=== PATIENT | female | born 1990 | race Caucasian/White ===

== ENCOUNTER 2019-05-10 16:10 | Emergency (ER) | payer OTHER ==
[~2019-05-10] VITALS: Ht 160 cm; Wt 59.0 kg
[2019-05-10 16:31] VITALS: BP 124/56
--- NOTE | 2019-05-10 16:44 | NUR ---
seen and evaluated by alyssa pinzon/rey billingsley in stable condition.
== END 2019-05-10 16:48 ==
LOC: ER 16:15
DX: Z02.89 Encounter for other administrative examinations (principal); F17.200 Nicotine dependence, unspecified, uncomplicated; Z98.890 Other specified postprocedural states

== ENCOUNTER 2019-06-28 14:14 | Emergency (ER) | payer OTHER ==
[~2019-06-28] VITALS: Ht 165.1 cm; Wt 70.8 kg
[2019-06-28 14:26] VITALS: BP 154/84
== END 2019-06-28 14:57 ==
LOC: ER 14:15
DX: Z02.89 Encounter for other administrative examinations (principal); F17.200 Nicotine dependence, unspecified, uncomplicated; Z98.890 Other specified postprocedural states

== ENCOUNTER 2020-06-30 09:17 | Emergency (ER) | payer OTHER ==
[~2020-06-30] VITALS: Ht 165.1 cm; Wt 81.6 kg
[2020-06-30 09:22] VITALS: BP 132/97
== END 2020-06-30 09:37 ==
LOC: ER 09:25
DX: Z02.89 Encounter for other administrative examinations (principal); Z98.890 Other specified postprocedural states